=== PATIENT | male | born 1955 | race Caucasian/White ===

== ENCOUNTER 2021-08-26 06:02 | Day surgery (SDC) | payer MEDICARE, OTHER ==
[2021-08-26] MEDS ORDERED: Lactated Ringers 1,000 ML IV SCH (07:00)
[2021-08-26] MEDS ORDERED: DIPRIVAN 200 MG/20 ML IV ONE ×2 (07:00→07:11)
[2021-08-26] MEDS ORDERED: Xylocaine-Mpf 2% 5 Ml Vial ONE (07:11)
[2021-08-26 07:43] VITALS: O2SAT 98
[2021-08-26 08:15] VITALS: BP 166/74; PULSE 68
--- NOTE | 2021-08-26 15:11 | OP ---
SURGERY DATE/TIME: 08/26/2021 0659 PREOPERATIVE DIAGNOSIS: Screening exam. POSTOPERATIVE DIAGNOSIS: Small rectal polyps. PROCEDURE: Colonoscopy with cold forceps biopsy. SURGEON: Dr. Naranjo. ANESTHESIA: MAC. Medications given by anesthesia department. HISTORY: The patient is a 65-year-old white male patient presenting now for his first screening colonoscopy. The patient described the risks of the procedure including the risk of perforation, phlebitis, untoward reaction to medication, bleeding and missed lesions. The patient verbalized his understanding and desired to have the procedure performed. DESCRIPTION OF PROCEDURE: The patient was given the medications by the anesthesia department. He had continuous pulse oximetry, ECG monitoring, intermittent blood pressure monitoring and tidal CO2 monitoring during the examination. He was placed in the left lateral decubitus position. A digital rectal examination was performed and revealed normal anal sphincter tone, no masses and normal prostate. The flexible Olympus pediatric colonoscope was used to intubate the rectum. A view of the colon was developed sequentially to the cecum. Upon insertion and withdrawal was noted small polyps in the rectal area which were biopsied using cold forceps biopsy. The scope was removed from the patient who tolerated the procedure well and was sent back to OP recovery in good condition. The prep was noted to be good.
== END 2021-08-26 08:20 | disposition home or self-care (01) ==
LOC: SDC 06:02
PROVIDERS: ATTEND Family Medicine
DX: Z12.11 Encounter for screening for malignant neoplasm of colon (principal); K62.1 Rectal polyp
CPT/HCPCS: 88305; J2704